=== PATIENT | female | born 1970 | race Two or more races ===

== ENCOUNTER → 2025-10-29 | Outpatient (CLI) | payer MEDICAID, SELFPAY ==
--- NOTE | 2025-10-29 08:30 | XR_ITS ---
Examination: CT lung low dose screening, without contrast. 2-D sagittal reconstructions. 2-D coronal reconstructions. 3-D reconstructions. Date and time of exam: October 29, 2025, 0913 hours INDICATIONS: Diagnosis solitary pulmonary nodule 2 months ago CTDI: vol (mGy): 16.5 DLP: (mGycm): 607 Technique: Multiple 1.25 mm axial sections of the lung low dose screening without intravenous contrast have been obtained. 2-D sagittal and coronal reconstructions have been obtained. 3-D reconstructions have been obtained. Low dose protocols were performed. One or more of the following dose reduction techniques were used; automated exposure control, adjustment of the mA and/or KV according to patient size, use of iterative reconstruction technique. Findings: No thoracic aortic aneurysm dilatation Pulmonary artery segments are not enlarged. No mediastinal lymphadenopathy. No coronary artery calcification 2 mm pulmonary nodule right middle lobe image 42 11 mm pulmonary nodule right lower lobe image 52 No pneumonia or pulmonary edema Fatty infiltration throughout the liver No gallstones Spleen not enlarged No pancreatic or adrenal mass No renal or ureteral calculi, no hydronephrosis Moderate thoracic spondylosis IMPRESSION: Pulmonary nodules as above, including 11 mm pulmonary nodule right lower lobe With the studies baseline recommend 6-month follow-up CT chest without contrast
== END | disposition home or self-care (01) ==
PROVIDERS: PCP Physician Assistant; Referring Provider Physician Assistant; Visit Provider Physician Assistant
DX: R91.8 Other nonspecific abnormal finding of lung field (principal)
CPT/HCPCS: 71271